=== PATIENT | male | born 1985 | race Caucasian/White ===

== ENCOUNTER 2017-07-01 14:31 | Emergency (ER) | payer SELFPAY ==
[2017-07-01] MEDS ORDERED: Ketorolac 60 MG/2 ML SDV IM ONE (15:01)
--- NOTE | 2017-07-01 15:02 | EDM.PDOC ---
ED HPI GENERAL MEDICAL PROBLEM - General Chief Complaint: Upper Extremity Injury/Pain Stated Complaint: L ELBOW Time Seen by Provider: 07/01/17 14:59 Source of Information: Reports: Patient History Limitations: Reports: No Limitations - History of Present Illness INITIAL COMMENTS - FREE TEXT/NARRATIVE: HISTORY AND PHYSICAL: []32-year-old male presenting with left shoulder pain History of Present Illness: []Just before coming to ER patient slipped on the ice hitting his shoulder and his left hand He denies any pain with movement to his wrist or forearm Review of Systems: As per history of present illness and below otherwise all systems reviewed and negative. Past medical history: As per history of present illness and as reviewed below otherwise noncontributory. Surgical history: As per history of present illness and as reviewed below otherwise noncontributory. Social history: No reported history of drug or alcohol abuse. Family history: As per history of present illness and as reviewed below otherwise noncontributory. Physical exam: Alert and oriented male answering questions appropriately in full sentences without shortness of breath HEENT: Atraumatic, normocehpalic, pupils reactive, negative for conjunctival pallor or scleral icterus, mucous membranes moist, throat clear, neck supple, nontender, trachea midline. Lungs: Clear to auscultation, breath sounds equal bilaterally, chest non tender. Heart: S1S2, regular, negative for clicks, rubs, or JVD. Abdomen: Soft, nondistended, nontender. Negative for masses or hepatossplenmegaly. Negative for costovertebral tenderness. Pelvis: Stable nontender. Genitourinary: Deferred. Rectal: Deferred Extremities: Left hand with minor abrasions, radial pulses are intact, negative for cords or calf pain. Tenderness noted 2 left shoulder decreased ability lifting his left arm Neurovascular unremarkable. Neuro: Awake, alert, oriented. Cranial nerves II through XII unremarkable. Cerebellum unremarkable. Motor and sensory unremarkable throughout. Exam nonfocal. Have discussed the results of the shoulder x-ray with the patient that there is a fracture to the scapula is nondisplaced Diagnostics: [X-ray left shoulder] Therapeutics: [Toradol 60 IM Sling] Impression: [Scapula fracture left] Plan: [Discharged to home Medications hydrocodone Follow-up with orthopedics] Definitive disposition and diagnosis as appropriate pending reevaluation and review of above. Onset: Today, Sudden Duration: Minutes: Location: Reports: Upper Extremity, Left Left Shoulder Pain Score (Numeric/FACES): 5 - Related Data Allergies Allergy/AdvReac Type Severity Reaction Status Date / Time No Known Allergies Allergy Verified 07/01/17 14:45 Home Meds: Home Meds . [No Known Home Meds] 06/04/16 [History] Past Medical History - Past Health History Medical/Surgical History: Denies Medical/Surgical History Psychiatric History: Reports: None - Infectious Disease History Infectious Disease History: Reports: None Social & Family History - Family History Family Medical History: Noncontributory - Tobacco Use Smoking Status *Q: Current Every Day Smoker Years of Tobacco use: 10 Packs/Tins Daily: 0.5 - Caffeine Use Caffeine Use: Reports: Energy Drinks - Recreational Drug Use Recreational Drug Use: No Review of Systems - Review of Systems Review Of Systems: ROS reveals no pertinent complaints other than HPI. ED EXAM, GENERAL - Physical Exam Exam: See Below (see dictation) Course - Vital Signs Last Recorded V/S: Last Vital Signs Temp 36.3 C 07/01/17 14:42 Pulse 67 07/01/17 14:42 Resp 18 07/01/17 14:42 BP 126/64 07/01/17 14:42 Pulse Ox 98 07/01/17 14:42 - Orders/Labs/Meds Orders: Active Orders 24 hr Category Date Time Status Splinting [RC] ASDIRECTED Care 07/01/17 16:18 Ordered Shoulder Comp Lt [CR] Stat Exams 07/01/17 14:59 Taken Meds: Medications Discontinued Medications Generic Name Dose Route Start Last Admin Trade Name Indy PRN Reason Stop Dose Admin Ketorolac Tromethamine 60 mg 07/01/17 15:01 07/01/17 15:25 Toradol IM 07/01/17 15:02 60 mg ONETIME ONE Administration Departure - Departure Time of Disposition: 16:25 Disposition: Home, Self-Care 01 Condition: Good Clinical Impression: Fracture of scapula Qualifiers: Encounter type: initial encounter Scapula location: unspecified part of scapula Fracture type: closed Laterality: left Qualified Code(s): S42.102A - Fracture of unspecified part of scapula, left shoulder, initial encounter for closed fracture - Discharge Information Instructions: How to Use a Sling, [id number], Shoulder Pain, [id number], Pain Medicine Instructions, [id number] Referrals: PCP,None [Primary Care Provider] - Forms: ED Department Discharge Additional Instructions: The following information is given to patients seen in the emergency department who are being discharged to home. This information is to outline your options for follow-up care. We provide all patients seen in our emergency department with a follow-up referral. The need for follow-up, as well as the timing and circumstances, are variable depending upon the specifics of your emergency department visit. If you don't have a primary care physician on staff, we will provide you with a referral. We always advise you to contact your personal physician following an emergency department visit to inform them of the circumstance of the visit and for follow-up with them and/or the need for any referrals to a consulting specialist. The emergency department will also refer you to a specialist when appropriate. This referral assures that you have the opportunity for followup care with a specialist. All of these measure are taken in an effort to provide you with optimal care, which includes your followup. Under all circumstances we always encourage you to contact your private physician who remains a resource for coordinating your care. When calling for followup care, please make the office aware that this follow-up is from your recent emergency room visit. If for any reason you are refused follow-up, please contact the [facility] emergency department at and asked to speak to the emergency department charge nurse. He then had found to have a scapular fracture is nondisplaced Referral has been made to orthopedics Keep the sling in place Take medication for pain as directed - My Orders Last 24 Hours: My Active Orders 07/01/17 14:59 Shoulder Comp Lt [CR] Stat 07/01/17 16:18 Splinting [RC] ASDIRECTED - Assessment/Plan Last 24 Hours: My Active Orders 07/01/17 14:59 Shoulder Comp Lt [CR] Stat 07/01/17 16:18 Splinting [RC] ASDIRECTED
[2017-07-01 17:02] VITALS: BP 143/60
--- NOTE | 2017-07-02 19:14 | CR ---
EXAM DATE: 07/01/17 PATIENT'S AGE: 32 Patient: MANDIE HENDERSON Facility: [place], [place] Site . Site : 1985 Study: XRay Shoulder Left [id number] 3:53:43 PM Ordering Physician: Doctor Marie Final Report: INDICATION: Fall. TECHNIQUE: Three views. IMPRESSION: Transverse scapular fracture with up to 4 mm diastasis along the medial blade and nondisplaced along the lateral extent which is roughly 2 cm below the inferior glenoid. Glenohumeral alignment appears normal. Maintained acromial humeral distance. Unremarkable acromioclavicular joint. Dictated by Nickolas Perry MD @ Jul 01 2017 4:03PM (Electronic Signature) Report Signed by Proxy. DIOR
== END 2017-07-01 16:46 | disposition home or self-care (01) ==
LOC: MW.ED 14:31
DX: S42.102A Fracture of unspecified part of scapula, left shoulder, initial encounter for closed fracture (principal); F17.210 Nicotine dependence, cigarettes, uncomplicated; W00.9XXA Unspecified fall due to ice and snow, initial encounter
CPT/HCPCS: 73030; 96372; 99283; A4566; J1885

== ENCOUNTER 2017-12-21 21:26 | Emergency (ER) | payer OTHER | END 2017-12-21 21:45 | disposition home or self-care (01) | LOC: MW.ED 21:26 | DX: Z53.21 Procedure and treatment not carried out due to patient leaving prior to being seen by health care provider (principal) ==